=== PATIENT | female | born 1975 | race Caucasian/White ===

== ENCOUNTER → 2023-06-02 10:18 | Outpatient (REF) | payer OTHER, SELFPAY | LOC: HWRAD 10:18 | PROVIDERS: ATTENDING PHYSICIAN Obstetrics & Gynecology; FAMILY PHYSICIAN Family Medicine | DX: N95.0 Postmenopausal bleeding (principal) | CPT/HCPCS: 76830; 76856 ==

== ENCOUNTER → 2024-01-14 09:53 | Outpatient (REF) | payer OTHER, SELFPAY | LOC: HWRAD 09:53 | PROVIDERS: ATTENDING PHYSICIAN Obstetrics & Gynecology; FAMILY PHYSICIAN Family Medicine | DX: N83.299 Other ovarian cyst, unspecified side (principal) | CPT/HCPCS: 76830; 76856 ==

== ENCOUNTER → 2024-04-22 11:16 | Outpatient (REF) | payer OTHER, SELFPAY | LOC: WDC 11:16 | PROVIDERS: ATTENDING PHYSICIAN Obstetrics & Gynecology; FAMILY PHYSICIAN Family Medicine | DX: Z12.31 Encounter for screening mammogram for malignant neoplasm of breast (principal) | CPT/HCPCS: 77063; 77067 ==

== ENCOUNTER → 2024-06-27 12:44 | Outpatient (REF) | payer OTHER, SELFPAY | LOC: HWRAD 12:44 | PROVIDERS: ATTENDING PHYSICIAN Obstetrics & Gynecology; FAMILY PHYSICIAN Family Medicine | DX: N83.209 Unspecified ovarian cyst, unspecified side (principal) | CPT/HCPCS: 76830; 76856 ==

== ENCOUNTER 2025-01-14 08:24 | Emergency (ER) | payer OTHER, SELFPAY ==
[2025-01-14 08:34] VITALS: BP 98/60
--- NOTE | 2025-01-14 09:30 | ED.GENMED ---
History of Present Illness
General
Chief Complaint: Musculo-Skeletal Complaint
Source: patient
Exam Limitations: none
Time Seen by Provider: 01/14/25 08:43
Nursing documentation reviewed up to this point in time: agreed with
History of Present Illness
History of Present Illness:
Patient is a 50-year-old female who presents to the ER after left ankle injury. Patient reports she rolled her ankle this morning. She complains of pain in the lateral ankle swelling. Denies any other injuries. She is not take anything for pain.
Phy Exam
General Physical Exam
General Presentation: no apparent distress
General age: appears stated age
General Skin: warm and dry
General Habitus: normal
General Mental: alert
General Hydration: appears well hydrated
Neurological Exam
Neurological Exam: alert and oriented x3
Musculoskeletal Exam
Musculoskeletal Exam: other (+ Strong pulses left lower extremity, positive swelling to left lateral malleolus no proximal tib-fib tenderness no proximal fifth metatarsal tenderness)
Skin Exam
Skin Exam: normal color and warm/dry
Psychiatric Exam
Psychiatric Exam: normal mood/affect
Course
Orders/Labs/Results
Orders:
Orders
01/14/25 08:52
Ankle, left 3 view CR [CR Ankle - Left Min 3 Views ] Urgent
Comment:
Reason For Exam: INJURY
01/14/25 09:23
Ben Wrap Left-Treatment ONCE
Air Splint Left-Treatment ONCE
Crutches-Treatment ONCE
Ibuprofen [Motrin] 400 mg PO NOW STA
01/14/25 10:15
boot [Ortho Boot Left- Treatment] ONCE
Short or tall?: Tall
Vital Signs
Initial and Last Documented VS:
Initial Vital Signs
Temp Pulse Resp BP Pulse Ox
98 F 88 16 98/60 100
01/14/25 08:34 01/14/25 08:34 01/14/25 08:34 01/14/25 08:34 01/14/25 08:34
Last Documented Vital Signs
Temp Pulse Resp BP Pulse Ox
98.2 F 72 17 111/93 99
01/14/25 10:35 01/14/25 10:35 01/14/25 10:35 01/14/25 10:35 01/14/25 10:35
MDM/Problems Addressed
Differential Diagnosis Includes:
Not limited to ankle sprain strain fracture
MDM/Problems Addressed:
50-year-old female describes a twisting injury to the left ankle. There is a 1 mm cortical avulsion of the inferior margin of the lateral malleolus. Boot was placed. stable for d/c home w/RICE/nsaids and ortho
*Radiology
Radiology exam reviewed: radiology read reviewed
*Pulse Oximetry
SaO2: 100
Oxygen Mode of Delivery: Room air
Patient hypoxic: no
*Critical Care Note
Total Time (30-74mins, 75-104mins- exclusive of procedures): Not Applicable
ED Attending Note
-
Portions of this chart may have been created with voice recognition software.� Occasional wrong word or��sound alike� substitutions may have occurred due to the inherent limitations of voice recognition software.
Discharge Plan
Departure
Patient Disposition: Home (Routine Discharge)
Date of Disposition: 01/14/25
Time of Disposition: 09:31
Patient with high blood pressure during this ER visit?: No
Condition: Fair
Covid-19: Not Applicable
Discharge Problem:
Avulsion fracture of left ankle
Instructions: How to Use Crutches, Using Cold for Pain, Ankle Fracture ED
Referrals:
Sushila Hurtado I., DO [Active, Orthopedics]
Brie Welsh MD, Resident [Family Provider, General]
Activity Restrictions/Additional Instructions:
As discussed ice the affected area for the next 24 to 48 hours 20 minutes at a time several times a day. Keep elevated as much as possible. Wear boot until seen and evaluated by orthopedics.
Call Thursday for an appointment in next 2 days. You may take ibuprofen every 8 hours with food. Return if any worsening of symptoms.
Interventions
Interventions:
*Risk Screen - Suicide Last Done: 01/14/25 08:34
*General Assessment Last Done: 01/14/25 10:35
*Neglect/Abuse Screening Last Done: 01/14/25 08:34
*ED- Fall Risk Assessment Last Done: 01/14/25 10:37
*ED COVID-19 Vaccine History Last Done: 01/14/25 10:35
*ED Influenza Vaccine History Last Done: 01/14/25 10:35
*Nursing Disposition Last Done: 01/14/25 10:35
ED-Musculoskeletal Assessment Last Done: 01/14/25 09:25
Discharge Date and Time
Discharge Date/Time: 01/14/25 10:37
Print Language: SLOVENIAN
[2025-01-14] MEDS: MOTRIN 400 MG PO (10:31)
[2025-01-14 10:35] VITALS: BP 111/93
== END 2025-01-14 10:37 | disposition home or self-care (01) ==
LOC: EMR 08:24
PROVIDERS: EMERGENCY PHYSICIAN Emergency Medicine
DX: S82.62XA Displaced fracture of lateral malleolus of left fibula, initial encounter for closed fracture (principal); X50.1XXA Overexertion from prolonged static or awkward postures, initial encounter
CPT/HCPCS: 99283; 73610